=== PATIENT | male | born 1955 | race Caucasian/White ===

== ENCOUNTER 2019-04-06 14:14 | Emergency (ER) | payer SELFPAY ==
[~2019-04-06] VITALS: Ht 172.7 cm; Wt 74.8 kg
--- NOTE | 2019-04-06 14:21 | NUR ---
PT [id number]. [place] [place]. PT HAS BRUISE ON R FORARM. SON AT BEDSIDE. RR EVEN AND UNLABORED. NO ACUTE DISTRESS NOTED.
--- NOTE | 2019-04-06 14:25 | NUR ---
PT BEING AGGRESIVE. SON AT BEDSIDE. PT REMOVED IV.
--- NOTE | 2019-04-06 14:34 | NUR ---
PT REFUSING URINE
--- NOTE | 2019-04-06 14:42 | NUR ---
PT BEING COMPATIVE. DECLINED BLOOD COLLECTION.
--- NOTE | 2019-04-06 15:08 | NUR ---
PT SIGNED AMA FORM.
[2019-04-06 15:09] VITALS: BP 114/62
--- NOTE | 2019-04-06 15:09 | NUR ---
Patient does not wish to proceed with medical care recommended by ( ). Patient given information related to possible complications, up to and including , which could occur as a result of leaving the hospital at this time. Patient verbalizes understanding of risks involved due to leaving against medical advice. Patient has signed AMA form. Pt escoted out by son.
== END 2019-04-06 15:09 | disposition left against medical advice (07) ==
LOC: ER 14:17
DX: F10.129 Alcohol abuse with intoxication, unspecified (principal); I10 Essential (primary) hypertension; Y90.9 Presence of alcohol in blood, level not specified